=== PATIENT | female | born 1975 | race American Indian/Alaskan Native ===

== ENCOUNTER 2020-06-21 07:27 | Day surgery (SDC) | payer OTHER, BC ==
[~2020-06-21] VITALS: Ht 160 cm; Wt 64.0 kg
[~2020-06-21 07:27] MED LIST: ADULT LOW DOSE81 MG PO; BYDUREON B2 MG/0.85; CRESTOR5 MG; FENOFIBRATE40 MG PO; LANTUS100 UNITS/ SUB-Q; LEVAQUIN500 MG PO; NORCO 5-325 TA1 EACH PO; NOVOLIN R100 UNIT/1 INJ; VIT D; VITAMIN D31250 MC1 PO
[2020-06-21] MEDS ORDERED: NAPROXEN250 MG PO (07:44)
[2020-06-21] MEDS ORDERED: NORCO 5-325 TA1 EACH PO (07:45)
--- NOTE | 2020-06-21 09:06 | NUR ---
06/21/20 0906 Nasra Sales 0804 PATIENT ARRIVES TO PACU SLEEPING, AWAKENS WITH VERBAL STIMULI. RESP EVEN AND UNLABORED. OXYGEN OFF ON ARRIVAL TO PACU. ROOM AIR SATS 90%. PATIENT BACK TO SLEEP WHEN NOT STIMULATED. NEEDS OCCASIONAL REMINDER TO DEEP BREATHE AND COUGH.
--- NOTE | 2020-06-21 17:11 | OR ---
[facility] [address] [place], [place] [address] Signed DATE OF OPERATION: 06/21/2020 SURGEON: Alberto Chinchilla MD PREOPERATIVE DIAGNOSES: 1. Father with colon cancer in his early to mid 50s. 2. Hemorrhoids. POSTOPERATIVE DIAGNOSIS: Unremarkable colonoscopy. PROCEDURE: Colonoscopy without biopsy. ESTIMATED BLOOD LOSS: None. INDICATIONS: Sherri is a 44-year-old female, asked to see me for a followup colonoscopy. Her father was actually diagnosed with colon cancer somewhere in his early mid 50s. He had surgery and has been doing well since then. She can't recall if he actually had chemotherapy. Sherri had her 1st colonoscopy at age 31 in 2006 up in [place], [place]. She is having some rectal bleeding at the time. It was felt to be from the hemorrhoids. Of course, the endoscopist asked her to follow up every 5 years with respect to her family history. She then had a repeat colonoscopy right around 2009 being negative. In the meantime, she has moved back to the [facility]. She had her left knee replaced and that has been small and things down a bit. She now comes to have a followup endoscopy. She had a little constipation associated with narcotic pain medications. Otherwise, no lower GI complaints. I had met with Sherri in the office and I gave her a pamphlet on colonoscopy. She understands the nature of the test along with the risks including, but not limited to gas bloating, crampy abdominal pain, bleeding, perforation requiring surgery, and missed diagnosis. I also gave her a brochure on colorectal polyps and cancer. She is quite aware that polyps can grow and become cancers over 8-12 years. With her family history, she needs to come every 5 years for repeat colonoscopy. We also reviewed the need for IV conscious sedation, she had expressed understanding and wished to proceed. DESCRIPTION OF PROCEDURE: Sherri was taken into our endoscopy suite and placed in the left lateral decubitus position. She was given a preop antibiotic because of the left knee replacement. After Electronically Signed By: ALBERTO CHINCHILLA MD 06/21/20 4871 PATIENT NAME: SHERRI VELASQUEZ OPERATIVE REPORT DATE OF : 75 REPORT #: [id number] PHYSICIAN: ALBERTO CHINCHILLA MD PCP: EKATERINA COY REPORT IS CONFIDENTIAL AND NOT TO BE RELEASED WITHOUT AUTHORIZATION [facility] [address] [place], [place] [address] Signed this, she was given a total of 5 mg of Versed and 125 mcg of fentanyl to cover the case. A digital rectal exam was performed and this was unremarkable. The adult colonoscope was introduced and advanced under direct visualization. She had a couple areas of liquid particulate stool matter, most of that was irrigated and suctioned out. She used a little extra sedation and abdominal compression or get the camera around hepatic flexure and down into the cecum itself. We could easily see the appendiceal orifice and the ileocecal valve. The scope was slowly withdrawn. We took pictures throughout for photodocumentation. We found no pathology throughout the entire colon or rectum. Upon retroflexion of scope, we did not see any additional pathology above the anal canal on this occasion. After this, the gas was suctioned out and the colonoscope removed. Sherri tolerated the procedure quite well. RECOMMENDATIONS: Sherri will follow up in 5 years for repeat colonoscopies. Alberto Chinchilla MD ALB/MODL /[id number] cc: MD Ekaterina Madison PA Copies: ALBERTO CHINCHILLA MD ~ Electronically Signed By: ALBERTO CHINCHILLA MD 06/21/20 1711 PATIENT NAME: SHERRI VELASQUEZ OPERATIVE REPORT DATE OF : 75 REPORT #: [id number] PHYSICIAN: ALBERTO CHINCHILLA MD PCP: EKATERINA COY REPORT IS CONFIDENTIAL AND NOT TO BE RELEASED WITHOUT AUTHORIZATION
== END 2020-06-21 09:40 | disposition home or self-care (01) ==
LOC: OPS 07:27 → DS 07:33 → OPS 09:00 → DS 09:00 → OPS 09:40
PROVIDERS: ATTEND Colon & Rectal Surgery
PROC: 0DJD8ZZ Inspection of Lower Intestinal Tract, Via Natural or Artificial Opening Endoscopic (ICD-10-PCS; principal; 2020-06-21 09:00)
DX: Z09 Encounter for follow-up examination after completed treatment for conditions other than malignant neoplasm (principal); E11.9 Type 2 diabetes mellitus without complications; Z80.0 Family history of malignant neoplasm of digestive organs; Z79.899 Other long term (current) drug therapy; Z79.82 Long term (current) use of aspirin; Z79.4 Long term (current) use of insulin; Z96.652 Presence of left artificial knee joint; Z90.49 Acquired absence of other specified parts of digestive tract; Z88.5 Allergy status to narcotic agent
CPT/HCPCS: 84703; 99153; G0500; J0690; J2250; J3010

== ENCOUNTER 2023-03-21 05:45 | Day surgery (SDC) | payer OTHER, BC ==
[2023-03-18 15:28] VITALS: BP 108/71
[~2023-03-21] VITALS: Ht 160 cm; Wt 68.0 kg
--- NOTE | ~2023-03-21 | OR ---
[facility] [address] [place], [place] [address] Draft DATE OF OPERATION: 03/21/2023 SURGEON: Segundo Suarez DO PREOPERATIVE DIAGNOSES: 1. Abnormal uterine bleeding. 2. Fibroid uterus. 3. History of endometrial ablation. 4. Type 2 diabetes, well controlled. POSTOPERATIVE DIAGNOSES: 1. Abnormal uterine bleeding. 2. Fibroid uterus. 3. History of endometrial ablation. 4. Type 2 diabetes, well controlled. PROCEDURES PERFORMED: 1. Total laparoscopic hysterectomy. 2. Bilateral salpingectomy. 3. Cystoscopy. WASH DRILLER: Chelsea Sauceda DO. ANESTHESIA: General. ESTIMATED BLOOD LOSS: 25 mL. SPECIMEN: Uterus, cervix, bilateral fallopian tubes. DRAINS: Mesa to gravity. FINDINGS: Normal external genitalia with normal clitoris, urethral meatus, bilateral Leipsic's, Bartholin's, perineal body and anus. Cervical stenosis from history of endometrial ablation. On laparoscopy, bilateral Falope rings but otherwise normal uterus, tubes, PATIENT NAME: TORITO VELASQUEZ OPERATIVE REPORT DATE OF : 75 REPORT #: [id number] PHYSICIAN: SEGUNDO SUAREZ (MIKE) PCP: JOSE COY REPORT IS CONFIDENTIAL AND NOT TO BE RELEASED WITHOUT AUTHORIZATION [facility] [address] [place], [place] [address] Draft and ovaries. At the end of the procedure, hemostatic with excellent apical support. Normal bladder with bilateral ureteral jets on cystoscopy. COMPLICATIONS: None. INDICATIONS: Ms. Velasquez is a very pleasant 47-year-old female with a history of endometrial ablation for abnormal uterine bleeding. She complained of continued abnormal uterine bleeding with passage of abnormal tissue that was unable to be investigated. Ultrasound was performed that demonstrated fibroids and abnormal appearance of the endometrium. Again, unable to sample the endometrium and recommended total laparoscopic hysterectomy. Risks, benefits, and alternatives were discussed in detail with the patient. The patient understands and wished to proceed with the procedure. TECHNIQUE: The patient was taken to the operating room. A time-out was performed to confirm correct patient and correct procedure. General anesthesia was adequately established. The patient was prepped and draped in the dorsal lithotomy position with feet in Yellofin stirrups. ICPs were on and running and no preoperative heparin was indicated. However, the patient did receive Ancef 2 g preoperatively per SCIP protocol. Due to her history of endometrial ablation, decision was made to start with laparoscopy. A 10 mL of 0.25% Marcaine with epinephrine was injected approximately 2 cm below the umbilicus and a 4 cm curvilinear incision was made through the skin. The fascia was grasped, elevated and entered sharply with Metzenbaum scissors. Fascial incision was extended bilaterally and 0 Vicryl was placed on the superior and inferior edges of the fascial incision. The peritoneum was entered bluntly and Claudette port was placed without difficulty with low opening pressures appreciated. Survey of the abdomen and pelvis was performed. A 5 mm assist port was placed in left lower quadrant under direct visualization without complication. An 8 mm expanding port was placed in the right lower quadrant under direct visualization without complication. Attention was then turned to placement of the uterine manipulator. A weighted speculum was placed in the vagina and the anterior lip of the cervix was grasped with an Allis clamp under direct visualization with the laparoscope. Uterine sound was gently advanced through the uterine scar tissue to the fundus without perforation or complication. The cervix was then easily dilated using Hegar dilators and a VCare uterine manipulator was placed without difficulty. A Mesa catheter was also inserted. The surgeon's gloves were changed and attention was turned to the hysterectomy. The left fallopian tube was grasped, elevated and divided along the mesosalpinx using LigaSure device. The left uteroovarian ligament was fulgurated and divided with excellent hemostasis. The round ligament was fulgurated and divided with excellent hemostasis. The leaves of the broad ligament were dissected with the anterior leaf being dissected from the midportion of PATIENT NAME: TORITO VELASQUEZ OPERATIVE REPORT DATE OF : 75 REPORT #: [id number] PHYSICIAN: SEGUNDO SUAREZ) PCP: OJSE COY REPORT IS CONFIDENTIAL AND NOT TO BE RELEASED WITHOUT AUTHORIZATION [address] [address] Draft the round to the edge of the vaginal cup and across the anterior portion of the vaginal cup. The posterior leaf was dissected from the portion around to the angle of the uterosacral ligament and posterior along the edge of the vaginal cup. The uterine vessels were identified, fulgurated and divided with excellent hemostasis. The process was repeated on the right with division of the fallopian tube along the mesosalpinx, fulguration division of the utero-ovarian ligament, round ligaments. The leaves of the broad ligament were dissected in the same fashion and the uterine vessels identified fulgurated and divided. The uterus was blanched and colpotomy was then performed using Sonicision device following the green edge of the vaginal cup. Excellent hemostasis was appreciated. The uterus and cervix were delivered through the vagina without difficulty. The pelvis was irrigated and found to be hemostatic. V-Loc Endostitch was used to repair the colpotomy with careful attention to incorporate the uterosacral ligaments bilaterally and incorporate the vaginal epithelium with each bite. Excellent hemostasis and apical support was appreciated at the end of the procedure. Attention was then turned to cystoscopy. The Mesa catheter was removed and 70-degree cystoscope was placed in the urethral meatus and advanced under direct visualization into the bladder. Normal bladder dome with bilateral ureteral jets appreciated. The bladder was drained. A Mesa catheter was reinserted. Infraumbilical fascia was then repaired using 0 Vicryl in a running nonlocked manner. Stay sutures were ligated to provide additional support. Skin was reapproximated using 4-0 Monocryl and subcuticular stitch with excellent hemostasis and cosmesis. The patient was then taken to PACU in good and stable condition. Sponge, needle, and instrument count was correct x2 at the end of the procedure. Dr. Sauceda was present and participated in all portions of the procedure. Segundo Suarez DO JBERKLEY/ERICA /[id number] Copies: ~ PATIENT NAME: TORITO VELASQUEZ OPERATIVE REPORT DATE OF : 75 REPORT #: [id number] PHYSICIAN: SEGUNDO SUAREZ (MIKE) PCP: JOSE COY REPORT IS CONFIDENTIAL AND NOT TO BE RELEASED WITHOUT AUTHORIZATION
[~2023-03-21 05:45] MED LIST changes: +BASAGLAR T100 UNIT/1 SQ; +NAPROXEN250 MG PO; +NEURONTIN300 MG PO
[2023-03-21 06:00] VITALS: BP 109/72
[2023-03-21] MEDS ORDERED: OZEMPIC1 MG/0.71 SUB-Q (06:03)
[2023-03-21 09:52] VITALS: BP 94/58
[2023-03-21 10:58] VITALS: BP 99/56
[2023-03-21 12:01] VITALS: BP 100/58
--- NOTE | 2023-03-26 13:10 | PATH ---
[facility] [address] [place], [place] [address] Signed SPECIMEN(S): A UTERUS, CERVIX, BILAT FALLOPIAN TUBES SPECIMEN SOURCE: A. UTERUS, CERVIX, BILAT FALLOPIAN TUBES CLINICAL HISTORY: AUB; intramural leiomyoma of uterus; history of ablation; endometrial thickening FINAL PATHOLOGIC DIAGNOSIS: Uterus, cervix, bilateral fallopian tubes: - Benign proliferative endometrium. - Adenomyosis with focal cystic changes. - Benign endocervix and ectocervix. - Benign bilateral oviducts. JVR:addyh:C2NR MICROSCOPIC EXAMINATION: Histologic sections of all submitted blocks are examined by light microscopy. These findings, together with the gross examination, support the pathologic diagnosis. GROSS DESCRIPTION: The specimen, labeled and designated "Miko, Jose Maria" and designated on the requisition "uterus, cervix, bilateral fallopian tubes," is received in formalin and consists of a uterus (trimmed weight: 126 g, 6.3 cm superior to inferior, 5.8 cm cornu to cornu, 5.2 cm anterior to posterior), attached cervix (3.0 cm in length x 3.4 cm in diameter) with reilly-pink ectocervical mucosa and slit-shaped os (1.7 x 0.4 cm). Also received are two detached and undesignated fimbriated fallopian tube segments (5.4 cm in length and ranging in diameter from 0.5 to 1.0 cm, and 4.6 cm in length and ranging in diameter from 0.5 to 1.3 cm). One fallopian tube segment is arbitrarily inked blue. Both segments are serially sectioned to reveal pink-reilly to red-brown soft cut surfaces. The uterine serosa is brown-reilly and smooth. Sectioning of the cervix reveals reilly wrinkled endocervical mucosa (endocervical canal: 2.7 cm in length x 1.4 cm in diameter) with multiple mucoid material filled cysts within the wall of the cervix that range in size from 0.2 to 1.1 cm in greatest dimension. The endometrial cavity (4.6 cm superior to inferior PATIENT NAME: TORITO VELASQUEZ PATHOLOGY DATE OF : 75 REPORT #: [id number] PHYSICIAN: ELIZABETH JIN PCP: JOSE COY REPORT IS CONFIDENTIAL AND NOT TO BE RELEASED WITHOUT AUTHORIZATION [facility] [address] [place], [place] [address] Signed x 1.4 cm cornu to cornu) contains reilly endometrial lining that measures 0.1 cm in thickness. The myometrium is reilly-pink and markedly trabeculated measuring up to 2.6 cm in thickness with multiple intramural cystic spaces containing hemorrhagic material that range in size from 0.2 to 1.3 cm in greatest dimension. Delivery Room Clerk sections are submitted. Cassette Summary: (A1-A2) fallopian tubes (A3) cervix (A4) endomyometrium (A5) myometrium with cystic spaces AC (under the direct supervision of a pathologist) The Gross Description was prepared using a voice recognition system. The report was reviewed for accuracy; however, sound-alike word errors, addition and/or deletions may occur. If there is any question about this report, please contact Client Services. PERFORMING LABORATORY: Technical component was performed by [facility], [address] [place] [address] (CLIA# [id number]). Professional interpretation was performed by [facility] - [facility], [address] [place] [address], [place] [address] (CLIA#: [id number]). Diagnostician: Cristobal Ramey MD Pathologist Electronically Signed 03/26/2023 Copies: ~ PATIENT NAME: TORITO VELASQUEZ PATHOLOGY DATE OF : 75 REPORT #: [id number] PHYSICIAN: ELIZABETH PATHOLOGY PCP: JOSE COY REPORT IS CONFIDENTIAL AND NOT TO BE RELEASED WITHOUT AUTHORIZATION
== END 2023-03-21 12:36 | disposition home or self-care (01) ==
LOC: OPS 05:45 → DS 05:45 → OPS 07:30 → DS 07:30 → OPS 12:36
PROVIDERS: ATTEND Obstetrics & Gynecology
PROC: 0UT94ZZ Resection of Uterus, Percutaneous Endoscopic Approach (ICD-10-PCS; principal; 2023-03-21 07:30)
PROC: 0UT74ZZ Resection of Bilateral Fallopian Tubes, Percutaneous Endoscopic Approach (ICD-10-PCS; 2023-03-21 07:30)
DX: N80.03 Adenomyosis of the uterus (principal); D25.1 Intramural leiomyoma of uterus; N93.9 Abnormal uterine and vaginal bleeding, unspecified; R93.89 Abnormal findings on diagnostic imaging of other specified body structures; Z98.890 Other specified postprocedural states; E11.9 Type 2 diabetes mellitus without complications
CPT/HCPCS: 00840; J0131; J0690; J1100; J1885; J2001; J2250; J2370; J2405; J2704; J3490; J7121

== ENCOUNTER 2024-10-31 10:39 | Emergency (ER) | payer OTHER ==
[~2024-10-31] VITALS: Ht 160 cm; Wt 61.7 kg
[2024-10-31] MEDS ORDERED: DIPHENOXYLATE/ATROPINE 1 EA TAB PO ONE (11:00)
[2024-10-31] MEDS ORDERED: SODIUM CHLORIDE 0.9% 1,000 ML IV ONE (11:00)
[2024-10-31 11:25] LABS: BASOPHILS 0.4 % (0-2); EOSINOPHILS 1.8 % (0-6); HEMATOCRIT 39.4 % (35.0-50.0); HEMOGLOBIN 13.6 g/dL (12.0-18.0); LYMPHOCYTES 12.1 % (24-44); MCH 31.3 (27-36); MCHC 34.6 g/dl (30-36); MCV 90.5 fl (81-99); NEUTROPHILS 69.7 % (39-80); PLATELET COUNT 175 K/uL (140-440); RBC 4.35 M/ul (4.3-5.7); RDW 13.7 (10.5-15.0)
[2024-10-31 11:44] LABS: ALBUMIN 3.4 g/dL (3.4-5.0); ALBUMIN/GLOBULIN RATIO 0.94 (1.1-2.4); ANION GAP 13.2 (7-21); BILIRUBIN, TOTAL 0.9 mg/dL (0.2-1.0); BUN/CREATININE RATIO 13.69 (6.0-28.6); CALCIUM 8.8 mg/dL (8.5-10.1); CREATININE, SERUM 0.73 mg/dL (0.55-1.02); MAGNESIUM 2.1 mg/dL (1.8-2.4); POTASSIUM 4.2 mmol/L (3.5-5.1)
[2024-10-31 13:26] VITALS: BP 102/65
== END 2024-10-31 13:28 | disposition home or self-care (01) ==
LOC: ED 10:39
PROVIDERS: Emergency Medicine
DX: K52.9 Noninfective gastroenteritis and colitis, unspecified (principal); E11.9 Type 2 diabetes mellitus without complications; E78.5 Hyperlipidemia, unspecified; Z88.5 Allergy status to narcotic agent; Z88.8 Allergy status to other drugs, medicaments and biological substances; Z79.4 Long term (current) use of insulin; Z79.899 Other long term (current) drug therapy
CPT/HCPCS: 36415; 80053; 83735; 85025; 96360; 99284-25; J7030

== ENCOUNTER 2025-06-14 11:08 | Day surgery (SDC) | payer OTHER ==
[~2025-06-14] VITALS: Ht 160 cm; Wt 65.9 kg
[~2025-06-14 11:08] MED LIST changes: +CEFAZOLIN SODIUM 2 GM in SODIUM CHLORIDE 0.9% 100 ML IV SCH; +IBLOOD GLUCOSE TEST STRIP 1 EA TEST VI PRN; +LACTATED RINGER'S 1,000 ML IV SCH; +LIDOCAINE HCL 1% 5 ML SDV INJ ONE; +LOMOTIL TABLET1 EACH PO; +MIDAZOLAM HCL 5 MG/5 ML VIAL IV PRN; +ONDANSETRON ODT8 MG PO; +OZEMPIC1 MG/0.71 SUB-Q; +fentaNYL citrate 100 MCG/2 ML VIAL IV PRN
[2025-06-14 11:51] VITALS: BP 105/61
[2025-06-14] MEDS ORDERED: fentaNYL citrate 100 MCG/2 ML VIAL ONE (12:37)
[2025-06-14] MEDS ORDERED: MIDAZOLAM HCL 5 MG/5 ML VIAL ONE (12:37)
--- NOTE | 2025-06-14 14:09 | NUR ---
06/14/25 1409 Junie Rubi 1404: PT ARRIVES TO PACU NON AROUSAL/REACTIVE. REPORT RECEIVED FROM [facility]. GONZALEZ 1405: PT IS AUDIBLY PASSING GAS
[2025-06-14 15:01] VITALS: BP 104/63
--- NOTE | 2025-06-14 15:58 | OR ---
[facility] [address] [place], [place] [address] Signed DATE OF OPERATION: 06/14/2025 SURGEON: Harrison Plascencia MD PREOPERATIVE DIAGNOSIS: Family history of colon cancer (father). POSTOPERATIVE DIAGNOSIS: Small polyp at splenic flexure (excised). PROCEDURE: Total colonoscopy to cecum with cold morcellation polypectomy x1. ANESTHESIA: Intravenous sedation fentanyl 175 mcg and Versed 7 mg. INDICATION: A 49-year-old [place] woman is a patient of Ekaterina LINDER at [facility]. She underwent colonoscopy in [address] Sukhwinder Marie. She had no findings at that time. She does have family history of colon cancer in her father. She has had black stool in the past in 2023, but no specific evaluation for that and has no such findings at this time. She is admitted at this time to undergo colonoscopy for surveillance given her family history of colon cancer in her father. She understands the risk of bleeding, infection, and perforation, wished to proceed. FINDINGS: The prep was good. Complete and full intubation of the colon to the cecum was accomplished. There was a small adenomatous polyp possibly 4 mm in size at the splenic flexure, which was excised with cold morcellation technique. The remaining colon was normal. DESCRIPTION OF PROCEDURE: The patient was brought to the endoscopy suite and placed in lateral decubitus position, given intravenous sedation to the point of slurred speech and nystagmus. Digital rectal examination was normal. An Olympus video colonoscope was passed in the rectum and manipulated throughout the colon ultimately intubating the cecum itself. The ileocecal valve and appendiceal orifice were normal. Scope was withdrawn and irrigation undertaken throughout. At approximately the splenic flexure a small 4 mm polyp was noted, this was excised with Electronically Signed By: HARRISON PLASCENCIA MD 06/14/25 1558 PATIENT NAME: TORITO VELASQUEZ OPERATIVE REPORT DATE OF : 75 REPORT #: [id number] PHYSICIAN: HARRISON PLASCENCIA MD PCP: EKATERINA COY PAC REPORT IS CONFIDENTIAL AND NOT TO BE RELEASED WITHOUT AUTHORIZATION [facility] [address] [place], [place] [address] Signed cold morcellation technique. Further withdrawal of scope showed no other abnormality. The rectum was normal. Scope was removed. The patient was taken to recovery room in good condition. CONCLUDING DIAGNOSIS: Polyps x1, splenic flexure, otherwise normal. PLAN: Recommend repeat colonoscopy in 5 years, sooner if symptoms should develop. She will return to the ongoing care of Ekaterina Coy at [facility]. MD MANISHA Marcus/ERICA /[id number] cc: NIYAH Sutherland Copies: ~ Electronically Signed By: HARRISON PLASCENCIA MD 06/14/25 1558 PATIENT NAME: TORITO VELASQUEZ OPERATIVE REPORT DATE OF : 75 REPORT #: [id number] PHYSICIAN: HARRISON PLASCENCIA MD PCP: EKATERINA COY PAC REPORT IS CONFIDENTIAL AND NOT TO BE RELEASED WITHOUT AUTHORIZATION
--- NOTE | 2025-06-16 16:03 | PATH ---
[facility] [address] [place], [place] [address] Signed SPECIMEN(S): A SPLENIC FLEXURE COLON POLYP SPECIMEN SOURCE: A. SPLENIC FLEXURE COLON POLYP CLINICAL HISTORY: Pre-family history of colon cancer, patient history of Black stool 12/08. Post-polyp x 1 A) polyp FINAL PATHOLOGIC DIAGNOSIS: Splenic flexure colon polyp: - Tubular adenoma (one fragment). JVR:shola MICROSCOPIC EXAMINATION: Histologic sections of all submitted blocks are examined by light microscopy. These findings, together with the gross examination, support the pathologic diagnosis. GROSS DESCRIPTION: The specimen, labeled and designated "Miko, splenic flexure colon polyp," is received in formalin and consists of one reilly soft tissue fragment, 0.4 cm. Entirely submitted in (A1). AB (under the direct supervision of a pathologist) The Gross Description was prepared using a voice recognition system. The report was reviewed for accuracy; however, sound-alike word errors, addition and/or deletions may occur. If there is any question about this report, please contact Client Services. PERFORMING LABORATORY: Technical component was performed by [facility], [address] [place] [address] (CLIA# [id number]). Professional interpretation was performed by [facility] - [facility], [address] [place] [id number] (CLIA#: [id number]). Diagnostician: Cristobal Ramey MD Pathologist Electronically Signed 06/16/2025 PATIENT NAME: TORITO VELASQUEZ PATHOLOGY DATE OF : 75 REPORT #: [id number] PHYSICIAN: ELIZABETH PATHOLOGY PCP: JOSE COY PAC REPORT IS CONFIDENTIAL AND NOT TO BE RELEASED WITHOUT AUTHORIZATION [address] [address] Signed Copies: ~ PATIENT NAME: TORITO VELASQUEZ PATHOLOGY DATE OF : 75 REPORT #: [id number] PHYSICIAN: ELIZABETH PATHOLOGY PCP: JOSE COY PAC REPORT IS CONFIDENTIAL AND NOT TO BE RELEASED WITHOUT AUTHORIZATION
== END 2025-06-14 15:14 | disposition home or self-care (01) ==
LOC: DS 11:08
PROVIDERS: ATTEND Surgery
PROC: 0DBL8ZX Excision of Transverse Colon, Via Natural or Artificial Opening Endoscopic, Diagnostic (ICD-10-PCS; principal; 2025-06-14 13:00)
DX: Z12.11 Encounter for screening for malignant neoplasm of colon (principal); D12.3 Benign neoplasm of transverse colon; E11.9 Type 2 diabetes mellitus without complications; Z80.0 Family history of malignant neoplasm of digestive organs; Z88.5 Allergy status to narcotic agent; Z88.1 Allergy status to other antibiotic agents; Z88.8 Allergy status to other drugs, medicaments and biological substances
CPT/HCPCS: 84703; 99153; G0500; J0688; J2250; J3010; J7121